=== PATIENT | male | born 1945 | race Caucasian/White ===

== ENCOUNTER 2024-08-07 12:53 | Emergency (ER) | payer OTHER, SELFPAY ==
[2024-08-07 12:58] VITALS: BP 164/96
--- NOTE | 2024-08-07 14:08 | ED.GENMED ---
History of Present Illness
General
Chief Complaint: Fall
Time Seen by Provider: 08/07/24 13:56
History of Present Illness
History of Present Illness:
78-year-old male presents to the emergency department for evaluation after head injury. 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 He has mild memory loss of what transpired thereafter. He is on Xarelto for prior PE.
Reports mild posterior headache, denies any vision changes, nausea, vomiting, or diarrhea at this point.
Past History
Past History
ED Past Medical History: HTN, Other (factor V Leiden efficiency ) and Other (PE)
ED Past Surgical History: Other (Has his spleen)
Social History
Tobacco: Non-smoker
Alcohol: Occasional
Drug: None
Personal:
Living: with family
Employment: Employed
Family History
Family History: Other (Noncontributory)
Review of Systems
Review of Systems
Allergies reviewed?: Yes
All Other Systems: ROS reviewed and negative except as documented in HPI and ROS
Phy Exam
Physical Exam
Physical Exam:
GEN: Well appearing, NAD, WDWN
HEENT: Normocephalic and atraumatic, oral mucosa moist, no scleral icterus, no nasal congestion
Cardiac: Regular rate
Lung: No respiratory distress, no tachypnea
MSK: No gross deformity or injuries
Skin: Good color, no pallor or jaundice, no rashes
Neuro: AO x3; CN II-XII grossly intact. BUE strength 5/5 in all bill, sensation intact and symmetric. BLE strength 5/5 in all bill, sensation intact and symmetric
Psych: Calm, cooperative
Course
Orders/Labs/Results
Orders:
Orders
08/07/24 13:[address] [CT Head W/o Iv Contrast] Urgent
Comment:
Reason For Exam: fall on thinners
Vital Signs
Initial and Last Documented VS:
Initial Vital Signs
Temp Pulse Resp BP Pulse Ox
98.7 F 81 18 164/96 97
08/07/24 12:58 08/07/24 12:58 08/07/24 12:58 08/07/24 12:58 08/07/24 12:58
Last Documented Vital Signs
Temp Pulse Resp BP Pulse Ox
98.7 F 58 18 183/82 92
08/07/24 12:58 08/07/24 14:54 08/07/24 14:54 08/07/24 14:54 08/07/24 14:54
MDM/Problems Addressed
MDM/Problems Addressed:
CT of the head obtained due to patient's use of anticoagulant, this was unremarkable. He remained neurologically intact and suitable for discharge
*Critical Care Note
Total Time (30-74mins, 75-104mins- exclusive of procedures): Not Applicable
ED Attending Note
-
Portions of this chart may have been created with voice recognition software.� Occasional wrong word or��sound alike� substitutions may have occurred due to the inherent limitations of voice recognition software.
Discharge Plan
Departure
Patient Disposition: Home (Routine Discharge)
Date of Disposition: 08/07/24
Time of Disposition: 16:26
Patient with high blood pressure during this ER visit?: No
Discharge Problem:
Closed head injury
Instructions: Head Injury in Adults (DC)
Prescriptions:
No Action
Cozaar
50 mg PO DAILY
Multivitamin
1 cap PO DAILY
Nexium
22 mg PO DAILY
allopurinol 100 MG tablet
300 mg PO DAILY
simvastatin 40 MG tablet
40 mg PO HS
warfarin [Jantoven] 2.5 MG tablet
2 mg PO MOTUTHFRSA
warfarin [Jantoven] 3 MG tablet
3 mg PO .WEDSUN
finasteride 5 MG tablet
5 mg PO DAILY
cefuroxime axetil 500 MG tablet
500 mg PO BID Qty: 20 0RF
azithromycin 250 MG tablet
250 mg PO DAILY Qty: 6 0RF
cephalexin 500 mg capsule
500 mg PO Q8H Qty: 14 0RF
Referrals:
Magen Justice MD [Family Provider] -
Interventions
Interventions:
*Risk Screen - Suicide Last Done: 08/07/24 12:58
*General Assessment Last Done: 08/07/24 12:58
*Neglect/Abuse Screening Last Done: 08/07/24 12:58
*ED- Fall Risk Assessment Last Done: 08/07/24 14:53
*ED COVID-19 Vaccine History Last Done: 08/07/24 14:53
ED-Musculoskeletal Assessment Last Done: 08/07/24 13:52
ED- Neurological Assessment Last Done: 08/07/24 13:52
ED-Skin Assessment Last Done: 08/07/24 13:52
Discharge Date and Time
Print Language: HAITIAN
[2024-08-07 14:52] VITALS: BMI 26.8
[2024-08-07 14:54] VITALS: BP 183/82
== END 2024-08-07 17:00 | disposition home or self-care (01) ==
LOC: EMR 12:53
PROVIDERS: EMERGENCY PHYSICIAN Emergency Medicine; FAMILY PHYSICIAN Internal Medicine
DX: S09.90XA Unspecified injury of head, initial encounter (principal); W18.39XA Other fall on same level, initial encounter; I10 Essential (primary) hypertension; D68.51 Activated protein C resistance; Z79.01 Long term (current) use of anticoagulants; Z86.711 Personal history of pulmonary embolism; Z86.73 Personal history of transient ischemic attack (TIA), and cerebral infarction without residual deficits
CPT/HCPCS: 99284; 70450

== ENCOUNTER → 2024-11-05 13:21 | Outpatient (REF) | payer OTHER, SELFPAY | LOC: MRI 3T 13:21 | PROVIDERS: ATTENDING PHYSICIAN Specialist; FAMILY PHYSICIAN Internal Medicine | DX: D07.5 Carcinoma in situ of prostate (principal) | CPT/HCPCS: 72197; A9575 ==